=== PATIENT | female | born 1970 | race African-American/Black ===

== ENCOUNTER 2019-02-14 12:26 | Emergency (ER) | payer OTHER ==
[~2019-02-14] VITALS: Ht 170.2 cm; Wt 81.0 kg
[2019-02-14 14:36] LABS: BASOPHILS % 1.3 % (0.0-2.0); EOSINOPHILS % 1.3 % (0.0-5.0); HEMATOCRIT. 37.9 % (36.0-48.0); MEAN CORPUSCULAR HEMOGLOBIN 23.3 pg (28.0-32.0); MEAN CORPUSCULAR VOLUME 73.4 fL (81.0-99.0); MEAN PLATELET VOLUME 8.8 fl (7.4-10.4); MONOCYTES % 6.1 % (2.0-8.0); NEUTROPHILS % 48.3 % (40.0-76.0); PLATELET 269 x1000/uL (130-400); RED BLOOD CELL COUNT 5.16 mill/uL (4.2-5.4); RED CELL DISTRIBUTION WIDTH 15.3 % (11.6-14.6)
[2019-02-14 14:44] LABS: PROTHROMBIN TIME 10.4 sec (9.6-11.0)
[2019-02-14 14:45] LABS: CHLORIDE 107 mEq/L (98-107)
[2019-02-14 17:37] VITALS: BP 122/68
== END 2019-02-14 17:37 | disposition home or self-care (01) ==
LOC: ER 12:26
DX: R53.1 Weakness (principal); Z98.890 Other specified postprocedural states; Z88.8 Allergy status to other drugs, medicaments and biological substances
CPT/HCPCS: 36415; 71045; 83880; 84484; 86850; 86900; 93005; 99284